=== PATIENT | female | born 1975 | race Caucasian/White ===

== ENCOUNTER 2018-11-27 11:01 | Emergency (ER) | payer MEDICAID ==
[2018-11-27 12:26] LABS: URINE BLOOD (Dip) POC Trace-intact (NEGATIVE); URINE GLUCOSE (Dip) POC Negative (NEGATIVE); URINE KETONES (Dip) POC Negative (NEGATIVE); URINE LEUKOCYTE EST (Dip) POC Trace (NEGATIVE); URINE NITRITE (Dip) POC Negative (NEGATIVE); URINE TOTAL PROTEIN POC Negative (NEGATIVE)
== END 2018-11-27 12:54 | disposition home or self-care (01) ==
LOC: FTE 12:54
DX: N81.10 Cystocele, unspecified (principal); N76.0 Acute vaginitis
CPT/HCPCS: 81003; 81025; 99283